=== PATIENT | male | born 1950 | race Caucasian/White ===

== ENCOUNTER 2016-11-06 17:28 | Emergency (ER) | payer MEDICARE, OTHER | END 2016-11-06 21:06 | disposition home or self-care (01) | LOC: ER 17:28 | DX: M54.5 Low back pain (principal); G89.29 Other chronic pain; K59.00 Constipation, unspecified; M41.9 Scoliosis, unspecified; I10 Essential (primary) hypertension; F17.210 Nicotine dependence, cigarettes, uncomplicated; Z79.899 Other long term (current) drug therapy; Z79.82 Long term (current) use of aspirin | CPT/HCPCS: 72100; 96372; 99283; 99283-25 ==